=== PATIENT | male | born 1985 | race Caucasian/White ===

== ENCOUNTER 2023-06-01 08:15 | Emergency (ER) | payer BC ==
[~2023-06-01] VITALS: Ht 172.7 cm; Wt 75.0 kg
[2023-06-01 08:17] VITALS: O2SAT 99
[2023-06-01] MEDS: TETANUS, DIPHTHERIA, PERTUSSIS VAC/PF 0.5ML (>10YR OLD) IM ONE (09:00)
[2023-06-01] MEDS: BACITRACIN ZINC OINT UDPKT TOP ONE (09:00)
[2023-06-01] MEDS: LIDOCAINE HCL/PF 1% 10 MG/ML 5ML VIAL INFIL ONE (10:08)
[2023-06-01] MEDS: ACETAMINOPHEN 325MG TABLET PO ONE (10:08)
[2023-06-01 11:37] VITALS: BP 118/69; PULSE 78; RESP 18; TEMP 98.1
== END 2023-06-01 11:40 | disposition home or self-care (01) ==
LOC: ER 08:15
DX: S61.512A Laceration without foreign body of left wrist, initial encounter (principal); X78.8XXA Intentional self-harm by other sharp object, initial encounter; Y93.89 Activity, other specified; Y92.89 Other specified places as the place of occurrence of the external cause; Y99.8 Other external cause status
CPT/HCPCS: 73110; 90715; 12001; 90471; 99283; J3490; Z7610 ×2